=== PATIENT | female | born 1930 | race Caucasian/White ===

== ENCOUNTER 2018-01-18 22:33 | Emergency (ER) | payer MEDICARE ==
[2018-01-18 22:57] VITALS: BP 160/93; PULSE 66; O2SAT 96
--- NOTE | 2018-01-18 23:25 | ERPHSYRPT ---
- History of Present Illness Time Seen by Provider: 01/18/18 23:18 Source: patient, EMS, prison records Exam Limitations: no limitations Patient Subjective Stated Complaint: EMS ADVISED PT WAS TRYING TO CLOSE HER BLINDS ON HER WINDOW AND LOST HER BALANCE, FALLING AGAINST THE WALL AND THEN SLIDING DOWN TO THE FLOOR; [facility] STAFF ADVISED EMS THAT SHE SPOKE TO THE PT'S POA AND THEY REQUESTED PT BE TRANSPORTED TO ER FOR EVAL; PT DENIES ANY PAIN OR DISCOMFORT UPON ARRIVAL; NO OBVIOUS DISTRESS; EMS ADVISED PT DENIED ANY PAIN OR DISCOMFORT AT [facility]. Triage Nursing Assessment: PT A&O X3; SKIN P, W, & D; NO ACUTE DISTRESS OR DISCOMFORT; PT DENIES ANY PAIN; TRANSPORTED TO ER PER EMS. Physician History: The patient is an 87-year-old female brought in by ambulance from a prison where he it was noted that she lost her balance while trying to close her window blinds, causing her to gently fall against the wall, and then slide down the wall to the floor. She denies hurting anywhere. She denies hurting when she slipped onto the wall. Her POA daughter from a nearby town wanted her evaluated. Her past medical history is significant for hypothyroidism, depression, mitral valve prolapse, hiatal hernia, breast cancer, hyperlipidemia , bilateral mastectomy, hypertension, appendectomy, hysterectomy, and tonsillectomy. Occurred: just prior to arrival Reason for Fall: lost balance, fell from standing pos Injuries/Pain Location: no injury Loss of Consciousness: no loss of consciousness Severity of Pain-Max: none Severity of Pain-Current: none Modifying Factors: Improves With: nothing Associated Symptoms (Fall): denies symptoms Allergies/Adverse Reactions: morphine Allergy (Mild, Verified 01/18/18 22:58) Home Medications: Advil 200 mg PO HSPRN PRN 10/15/11 [History] Cosopt Eye Drops 1 drops OP BID 10/15/11 [History] Fluoxetine HCl 20 mg PO HS 10/15/11 [History] Fosamax 70 MG 70 mg PO WEEKLY 10/15/11 [History] Lipitor 20MG Tablet 20 mg PO HS 10/15/11 [History] Lorazepam 0.5 mg PO HS PRN PRN 10/15/11 [History] Ocuvite Tablet 1 tab PO DAILY 10/15/11 [History] Senexon 2 tab PO DAILY PRN PRN 10/15/11 [History] Synthroid 112 mcg PO DAILY 10/15/11 [History] Travatan 0.004% Eye Drop 1 drops OP HS 10/15/11 [History] Tylenol 325 mg 325 mg PO Q4HPRN PRN 10/15/11 [History] Hx Tetanus, Diphtheria Vaccination/Date Given: Yes Hx Influenza Vaccination/Date Given: No Hx Pneumococcal Vaccination/Date Given: No - Review of Systems Constitutional: No Fever, No Chills Eyes: No Symptoms Ears, Nose, & Throat: No Symptoms Respiratory: No Cough, No Dyspnea Cardiac: No Chest Pain, No Edema, No Syncope Abdominal/Gastrointestinal: No Abdominal Pain, No Nausea, No Vomiting, No Diarrhea Genitourinary Symptoms: No Dysuria Musculoskeletal: No Back Pain, No Neck Pain Skin: No Rash Neurological: No Dizziness, No Focal Weakness, No Sensory Changes Psychological: No Symptoms Endocrine: No Symptoms Hematologic/Lymphatic: No Symptoms Immunological/Allergic: No Symptoms All Other Systems: Reviewed and Negative - Past Medical History Pertinent Past Medical History: Yes Cardiac History: High Cholesterol Endocrine Medical History: Hypothyroidism Musculoskeletal History: Fractures Female Reproductive Disorders: Breast Cancer - Past Surgical History Past Surgical History: Yes Gastrointestinal: Appendectomy Female Surgical History: Hysterectomy, Mastectomy Other Surgical History: TONSILLECTOMY. CATARACT SURGERY - Social History Smoking Status: Never smoker Exposure to second hand smoke: No Drug Use: none Patient Lives Alone: No - Female History Hx Last Menstrual Period: HYSTER - Nursing Vital Signs Nursing Vital Signs: Initial Vital Signs Temperature 98.1 F 01/18/18 22:33 Pulse Rate 66 01/18/18 22:33 Respiratory Rate 16 01/18/18 22:33 Blood Pressure 160/93 01/18/18 22:33 O2 Sat by Pulse Oximetry 96 01/18/18 22:33 Pain Scale Pain Intensity 0 - [place] Coma Score Best Eye Response ([place]): (4) open spontaneously Best Verbal Response ([place]): (5) oriented Best Motor Response ([place]): (6) obeys commands [place] Total: 15 - Physical Exam General Appearance: no apparent distress, alert Head Injury: no evidence of injury Eye Exam: PERRL/EOMI ENT Exam: airway nml Neck Exam: normal inspection, No tenderness Respiratory/Chest Exam: normal breath sounds, No chest tenderness, No respiratory distress Cardiovascular Exam: normal heart sounds, regular rate/rhythm Gastrointestinal Exam: soft, No tenderness, No distention, No guarding, No ecchymosis Rectal Exam: not done Back Exam: normal inspection, No vertebral tenderness Extremity Exam: normal inspection, normal range of motion, pelvis stable, No deformities Neurologic Exam: alert, oriented x 3, cooperative, sensation nml, No motor deficits Skin Exam: normal color, warm, dry SpO2: 96 Oxygen Delivery: Room Air - Progress Progress Note: 01/18/18 23:29 4 but examination was performed on the patient. No bruises or abrasions were noted. She has full range of motion of the upper and lower extremities. Her neck is nontender has range of motion. Head is nontender with no contusions. 01/18/18 23:37 The nurse was able to ambulate the patient up and down a hallway without any problems or pain. Counseled pt/family regarding: diagnosis - Departure Time of Disposition: 23:29 Departure Disposition: Home Clinical Impression: Fall at prison Condition: Stable Critical Care Time: No Referrals: KRYSTYNA MURRAY [Primary Care Provider] -
== END 2018-01-19 01:16 ==
LOC: ED 22:33
DX: Z04.3 Encounter for examination and observation following other accident (principal)
CPT/HCPCS: 99283

== ENCOUNTER 2019-04-03 08:29 | Emergency (ER) | payer MEDICARE ==
--- NOTE | 2019-04-03 08:39 | ERPHSYRPT ---
- History of Present Illness Time Seen by Provider: 04/03/19 08:39 Source: patient, EMS Physician History: the patient is a 88-year-old female whose presents with a chief complaint of left shoulder pain after a fall that occurredat assisted living this morning. She presents via EMS he responded to the scene and provided transportation. The staff members called after the patient reportedly fell in the hallway her carpeted surface. It is unknown if she lost consciousness there is no seizure activity reported. Of note, the patient is a poor historian and I am concerned that she likely has some underlying dementia or Alzheimer's. She is awake and alert and consuming her birthday with her apron cleaner was and who her daughter is however she cannot recall any recent events to include this year this month or what she was doing prior to the fall last night. She thinks the current month is afebrile. She keeps rubbing her left shoulder as if she is in pain but otherwise appears to be in no obvious distress and has no additional injuries. Details pertaining to the history of present illness were limited given the patient's mental status. Allergies/Adverse Reactions: morphine Allergy (Mild, Verified 04/03/19 09:05) Home Medications: Advil 200 mg PO HSPRN PRN 10/15/11 [History] Cosopt Eye Drops 1 drops OP BID 10/15/11 [History] Fluoxetine HCl 20 mg PO HS 10/15/11 [History] Fosamax 70 MG 70 mg PO WEEKLY 10/15/11 [History] Lipitor 20MG Tablet 20 mg PO HS 10/15/11 [History] Lorazepam 0.5 mg PO HS PRN PRN 10/15/11 [History] Ocuvite Tablet 1 tab PO DAILY 10/15/11 [History] Senexon 2 tab PO DAILY PRN PRN 10/15/11 [History] Synthroid 112 mcg PO DAILY 10/15/11 [History] Travatan 0.004% Eye Drop 1 drops OP HS 10/15/11 [History] Tylenol 325 mg 325 mg PO Q4HPRN PRN 10/15/11 [History] Hx Tetanus, Diphtheria Vaccination/Date Given: Yes Hx Influenza Vaccination/Date Given: No Hx Pneumococcal Vaccination/Date Given: No - Review of Systems Musculoskeletal: Fall, Other (Left shoulder pain) All Other Systems: Unable due to condition (Current mental status and possible unreported dementia) - Past Medical History Pertinent Past Medical History: Yes Cardiac History: High Cholesterol Endocrine Medical History: Hypothyroidism Musculoskeletal History: Fractures Female Reproductive Disorders: Breast Cancer - Past Surgical History Past Surgical History: Yes Gastrointestinal: Appendectomy Female Surgical History: Hysterectomy, Mastectomy Other Surgical History: TONSILLECTOMY. CATARACT SURGERY - Social History Smoking Status: Never smoker Exposure to second hand smoke: No Drug Use: none Patient Lives Alone: No - Nursing Vital Signs Nursing Vital Signs: Initial Vital Signs Temperature 97.7 F 04/03/19 08:44 Pulse Rate 71 04/03/19 08:44 Respiratory Rate 24 04/03/19 08:44 Blood Pressure 148/76 04/03/19 08:44 O2 Sat by Pulse Oximetry 95 04/03/19 08:44 Pain Scale Pain Intensity 2 - Physical Exam General Appearance: no apparent distress, alert Eye Exam: PERRL/EOMI, eyes nml inspection Ears, Nose, Throat Exam: normal ENT inspection, TMs normal, No dry mucous membranes, No TM abnormal (R), No TM abnormal (L), No pharyngeal erythema, No tonsillar exudate Neck Exam: normal inspection, non-tender, supple Respiratory Exam: crackles/rales, No chest tenderness, No respiratory distress, No rhonchi, No wheezing, No pleural rub Cardiovascular Exam: regular rate/rhythm, normal heart sounds, capillary refill <2 sec, No murmur, No friction rub, No gallop, No tachycardia, No bradycardia Gastrointestinal/Abdomen Exam: soft, normal bowel sounds, distention, No tenderness Pelvic Exam: deferred Rectal Exam: deferred Back Exam: other (Kyphosis present. No visible or palpable injury) Extremity Exam: normal inspection, normal range of motion, tenderness, other ( Tenderness noted to the left upper arm/shoulder with no obvious deformtiy, crepitus, or step-off. The patient demonstrated the ability to stand and walk to a bedside commode without difficulty) Neurologic Exam: alert, cooperative, other (Oriented to person only. Happily confused. Moving all extremities equally and the patient was able to get up from the bed to a commode) Skin Exam: normal color, warm, dry, rash, other (Stasis dermatitis noted to both lower extremities), No petechiae, No jaundice SpO2 Interpretation: normal O2 Delivery: Room Air - Radiology Exams Chest X-ray Interpretation: Reviewed by me, Teleradiologist Report, No Pneumonia, No Pneumothorax Left Shoulder X-ray Interpretation: Teleradiologist Report, No Fracture, Nml Alignment - CT Exams Head CT Interpretation: Tele-radiologist Report (Cerebral atrophy otherwise with no acute findings) Cervical Spine CT Interpretation: Tele-radiologist Report (No acute findings. No fracture or dislocation) Ordered Tests: Medication Summary Discontinued Medications Generic Name Dose Route Start Last Admin Trade Name Freq PRN Reason Stop Dose Admin Ceftriaxone Sodium/Dextrose 1 g in 50 mls @ 100 mls/hr 04/03/19 10:53 11:31 Rocephin 1 Gm-D5w 50 Ml Bag IV 04/03/19 11:22 Infused STAT STA Infusion Ceftriaxone Sodium/Dextrose Confirm 04/03/19 10:59 Rocephin 1 Gm-D5w 50 Ml Bag Administered 04/03/19 11:00 Dose 1 g in 50 mls @ ud IV .[facility] Lab/Rad Data: Laboratory Result Diagrams 04/03/19 09:15 04/03/19 09:15 Laboratory Results 04/03/19 04/03/19 04/03/19 Range/Units 09:40 09:15 09:15 WBC (4.0-10.5) K/mm3 RBC (4.1-5.4) M/mm3 Hgb (12.0-16.0) gm/dl Hct (35-47) % MCV (78-100) fl MCH (26-32) pg MCHC (32-36) g/dl RDW (11.5-14.0) % Plt Count (150-450) K/mm3 MPV (6-9.5) fl Gran % (36.0-66.0) % Eos # (Auto) (0-0.5) Absolute Lymphs (auto) (1.0-4.6) Absolute Monos (auto) (0.0-1.3) Lymphocytes % (24.0-44.0) % Monocytes % (0.0-12.0) % Eosinophils % (0.00-5.0) % Basophils % (0.0-0.4) % Absolute Granulocytes (1.4-6.9) Basophils # (0-0.4) Sodium 137 (137-145) mmol/L Potassium 4.2 (3.5-5.1) mmol/L Chloride 102 (98-107) mmol/L Carbon Dioxide 30 (22-30) mmol/L Anion Gap 9.3 (5-15) MEQ/L BUN 14 (7-17) mg/dL Creatinine 0.70 (0.52-1.04) mg/dL Estimated GFR > 60.0 ML/MIN Glucose 84 (74-106) mg/dL Calcium 10.1 (8.4-10.2) mg/dL Troponin I < 0.012 (0.000-0.034) ng/mL TSH 3rd Generation 8.410 H (0.47-4.68) mIU/L Urine Color YELLOW (YELLOW) Urine Appearance SLIGHTLY CLOUDY (CLEAR) Urine pH 7.0 (5-6) Ur Specific [place] 1.011 (1.005-1.025) Urine Protein NEGATIVE (Negative) Urine Ketones NEGATIVE (NEGATIVE) Urine Blood NEGATIVE (0-5) Mc/ul Urine Nitrite POSITIVE (NEGATIVE) Urine Bilirubin NEGATIVE (NEGATIVE) Urine Urobilinogen NEGATIVE (0-1) mg/dL Ur Leukocyte Esterase MODERATE (NEGATIVE) Urine WBC (Auto) 6-10 (0-5) /HPF Urine RBC (Auto) 3-5 (0-2) /HPF U Hyaline Cast (Auto) 0-2 (0-2) /LPF U Epithel Cells (Auto) NONE (FEW) /HPF Urine Bacteria (Auto) RARE (NEGATIVE) /HPF Unidentified Crystals 2-5 (NEGATIVE) /HPF Urine Mucus (Auto) SLIGHT (NEGATIVE) /HPF Urine Yeast (Budding) Few (NEGATIVE) /HPF Urine Culture Reflexed YES (NO) Urine Glucose NEGATIVE (NEGATIVE) mg/dL 04/03/19 Range/Units 09:15 WBC 9.8 (4.0-10.5) K/mm3 RBC 4.51 (4.1-5.4) M/mm3 Hgb 13.9 (12.0-16.0) gm/dl Hct 43.1 (35-47) % MCV 95.6 (78-100) fl MCH 30.8 (26-32) pg MCHC 32.3 (32-36) g/dl RDW 13.2 (11.5-14.0) % Plt Count 129 L (150-450) K/mm3 MPV 9.8 H (6-9.5) fl Gran % 72.8 H (36.0-66.0) % Eos # (Auto) 0.12 (0-0.5) Absolute Lymphs (auto) 1.46 (1.0-4.6) Absolute Monos (auto) 1.06 (0.0-1.3) Lymphocytes % 14.9 L (24.0-44.0) % Monocytes % 10.8 (0.0-12.0) % Eosinophils % 1.2 (0.00-5.0) % Basophils % 0.3 (0.0-0.4) % Absolute Granulocytes 7.11 H (1.4-6.9) Basophils # 0.03 (0-0.4) Sodium (137-145) mmol/L Potassium (3.5-5.1) mmol/L Chloride (98-107) mmol/L Carbon Dioxide (22-30) mmol/L Anion Gap (5-15) MEQ/L BUN (7-17) mg/dL Creatinine (0.52-1.04) mg/dL Estimated GFR ML/MIN Glucose (74-106) mg/dL Calcium (8.4-10.2) mg/dL Troponin I (0.000-0.034) ng/mL TSH 3rd Generation (0.47-4.68) mIU/L Urine Color (YELLOW) Urine Appearance (CLEAR) Urine pH (5-6) Ur Specific [place] (1.005-1.025) Urine Protein (Negative) Urine Ketones (NEGATIVE) Urine Blood (0-5) Mc/ul Urine Nitrite (NEGATIVE) Urine Bilirubin (NEGATIVE) Urine Urobilinogen (0-1) mg/dL Ur Leukocyte Esterase (NEGATIVE) Urine WBC (Auto) (0-5) /HPF Urine RBC (Auto) (0-2) /HPF U Hyaline Cast (Auto) (0-2) /LPF U Epithel Cells (Auto) (FEW) /HPF Urine Bacteria (Auto) (NEGATIVE) /HPF Unidentified Crystals (NEGATIVE) /HPF Urine Mucus (Auto) (NEGATIVE) /HPF Urine Yeast (Budding) (NEGATIVE) /HPF Urine Culture Reflexed (NO) Urine Glucose (NEGATIVE) mg/dL - Progress Progress: unchanged Progress Note: 04/03/19 11:39 I spoke to the patient's daughter, Alba Redd, who stated the patient's mental status is her baseline. Her physicians suspect the patient may have dementia and/or alzheimer's. They are currently in the process of moving her over to a memory unit, but they are waiting on availability. She is ok having the patient discharged back to her assisted living. She was updated with the patient's workup and findings of a possible UTI. She was also informed she was treated with abx in the ED and will be discharged with Keflex. 04/04/19 15:05 Counseled pt/family regarding: lab results, diagnosis, need for follow-up, rad results - Departure Departure Disposition: Extended Care Facility Clinical Impression: Fall, Memory changes, UTI (urinary tract infection) Condition: Stable Critical Care Time: No Referrals: ELENA WILLETT [Primary Care Provider] - Instructions: Urinary Tract Infections in Adults, Preventing Falls Prescriptions: Cephalexin Mh 500 mg [Keflex 500 mg] 500 mg PO TID #21 capsule
[2019-04-03 09:35] LABS: Absolute Neutrophil Ct (ANC) 7.11 (1.4-6.9); BASOPHIL % 0.3 % (0.0-0.4); Basophil (Absolute #) 0.03 (0-0.4); Eosinophil % 1.2 % (0.00-5.0); Eosinophil (Absolute #) 0.12 (0-0.5); Hematocrit 43.1 % (35-47); Hemoglobin 13.9 gm/dl (12.0-16.0); Lymphocyte (Absolute #) 1.46 (1.0-4.6); Lymphocytes % 14.9 % (24.0-44.0); Mean Cell Volume 95.6 fl (78-100); Mean Corpuscular Hemoglobin 30.8 pg (26-32); Mean Corpuscular Hgb Concent. 32.3 g/dl (32-36); Mean Platelet Volume 9.8 fl (6-9.5); Monocyte (Absolute #) 1.06 (0.0-1.3); Monocytes % 10.8 % (0.0-12.0); Neutrophil % 72.8 % (36.0-66.0); Platelet Count 129 K/mm3 (150-450); Red Blood Count 4.51 M/mm3 (4.1-5.4); Red Cell Distribution Width 13.2 % (11.5-14.0); White Blood Count 9.8 K/mm3 (4.0-10.5)
[2019-04-03 09:54] LABS: ANION GAP 9.3 MEQ/L (5-15); BLOOD UREA NITROGEN 14 mg/dL (7-17); CHLORIDE 102 mmol/L (98-107); Calcium 10.1 mg/dL (8.4-10.2); Carbon Dioxide 30 mmol/L (22-30); Glucose 84 mg/dL (74-106); Potassium 4.2 mmol/L (3.5-5.1); SODIUM 137 mmol/L (137-145)
[2019-04-03 09:59] LABS: Appearance SLIGHTLY CLOUDY (CLEAR); Bacteria RARE /HPF (NEGATIVE); Bilirubin NEGATIVE (NEGATIVE); Blood NEGATIVE Ery/ul (0-5); Glucose NEGATIVE (NEGATIVE); Hyaline Casts 0-2 /LPF (0-2); Ketones NEGATIVE (NEGATIVE); Leukocyte Esterase MODERATE (NEGATIVE); Mucus SLIGHT /HPF (NEGATIVE); Nitrite POSITIVE (NEGATIVE); Protein,Urine Dip NEGATIVE (Negative); Specific Gravity 1.011 (1.005-1.025); Urobilinogen NEGATIVE mg/dL (0-1)
[2019-04-03 10:00] LABS: Budding Yeast Few /HPF (NEGATIVE)
[2019-04-03 10:16] LABS: TROPONIN < 0.012 ng/mL (0.000-0.034)
[2019-04-03] MEDS ORDERED: ROCEPHIN 1 Gm-D5w 50 ml Bag** 1 G/50 ML IVPB IV STA (10:53)
[2019-04-03] MEDS ORDERED: ROCEPHIN 1 Gm-D5w 50 ml Bag** 1 G/50 ML IVPB IV ONE (10:59)
[2019-04-03 11:04] VITALS: BP 157/90; PULSE 70; O2SAT 93
--- NOTE | 2019-04-03 19:21 | XRAY ---
Indication: Pain following fall. Comparison: March 14, 2019. PA/lateral chest again demonstrates large hiatal hernia with intrathoracic stomach. No focal infiltrate, consolidation, or large effusion. Heart is not enlarged. Bony thorax again demonstrates osteopenia and degenerative changes throughout the spine. Stable remote L1 compression fracture and bilateral axillary surgical clips. Impression: Stable nonacute chest with chronic features. Comment: Preliminary interpretation was made by [facility]. No critical discrepancy.
--- NOTE | 2019-04-03 19:23 | XRAY ---
Indication: Pain following fall. Comparison: None 3 views of the left shoulder demonstrates osteopenia, mild AC degenerative arthropathy, left axilla surgical clips, and large hiatal hernia. No other bony, articular, or soft tissue abnormalities. Comment: Preliminary interpretation was made by [facility]. No critical discrepancy.
--- NOTE | 2019-04-03 19:26 | XRAY ---
Indication: Pain following fall. Multiple contiguous axial images obtained through the head without contrast. Comparison: May 03, 2009. Again age-appropriate global atrophy with progressive worsening moderate periventricular degenerative micro-ischemia bilaterally. Again old left basal ganglia lacunar infarct. No acute intracranial hemorrhage, abnormal extra-axial fluid collection, or mass effect. Fourth ventricle is midline without hydrocephalus. Bony calvarium intact. Visualized paranasal sinuses and mastoid air cells are clear. Impression: Nonacute senile brain with old left basal ganglia lacunar infarct. Comments: Preliminary interpretation was made by [facility]. No discrepancy.
--- NOTE | 2019-04-03 19:30 | XRAY ---
Indication: Pain following fall. Multiple contiguous axial images obtained through the cervical spine. Sagittal and coronal reformatted images obtained. Comparison: None Age-appropriate osteopenia. Axial images negative for acute fracture, suspicious bony lesions, or spinal canal stenosis. There is mild/moderate multilevel degenerative endplate spurring and mild multilevel bilateral degenerative facet hypertrophy. Sagittal and coronal reformatted images demonstrates normal cervical lordosis. Mild/moderate C3-C7 degenerative disc space narrowing. No acute compression fracture, subluxation, or jumped facet. Normal-appearing craniocervical junction. Visualized noncontrasted soft tissues demonstrates scattered carotid calcifications bilaterally, right apical pleural parenchymal fibrosis/scarring, small mediastinal/right hilar calcified nodes, and partially visualized hiatal hernia. Impression: 1. Negative acute fracture/subluxation. 2. Osteopenia and multilevel degenerative changes. 3. Incidental right apical pleural-parenchymal fibrosis/scarring, hiatal hernia, and evidence for old granulomatous disease Comment: Preliminary interpretation was made by [facility]. No critical discrepancy.
== END 2019-04-03 13:00 | disposition home or self-care (01) ==
LOC: ED 08:29
DX: R41.3 Other amnesia (principal); N39.0 Urinary tract infection, site not specified; W19.XXXA Unspecified fall, initial encounter; Y93.9 Activity, unspecified; Y92.89 Other specified places as the place of occurrence of the external cause; M25.512 Pain in left shoulder
CPT/HCPCS: 36000; 36415; 70450; 71046; 72125; 73030; 80048; 81001; 84443; 84484; 85025; 87077; 87086; 87186; 93005; 96365; 99284; J0696